=== PATIENT | female | born 1970 | race Caucasian/White ===

== ENCOUNTER 2019-11-12 10:01 | Day surgery (SDC) | payer BC ==
[~2019-11-12 10:01] MED LIST: Buffered Lidocaine 1% SYRIN* 1 ML/SYRINGE INTRADERM ONE; Dexamethasone IV* 4 MG/ML 1 ML (4 MG) IV SLOW PU ONE; Famotidine IV* 10 MG/ML 2 ML (20 mg) IV ONE; Lactated Ringers 1000 ML Bag* 1,000 ML IV SCH
[2019-11-12] MEDS ORDERED: Famotidine IV* 10 MG/ML 2 ML (20 mg) ONE (11:18)
[2019-11-12] MEDS ORDERED: Dexamethasone IV* 4 MG/ML 1 ML (4 MG) ONE (11:18)
[2019-11-12] MEDS ORDERED: Buffered Lidocaine 1% SYRIN* 1 ML/SYRINGE INTRADERM ONE (11:18)
[2019-11-12] MEDS ORDERED: Oxymetazoline 0.05% NASAL SPR* 15 ML BTL ONE ×2 (12:13→12:20)
[2019-11-12] MEDS ORDERED: Lidocaine 4% TOPICAL* 50 ML TOP.SOLN ONE (12:20)
[2019-11-12] MEDS ORDERED: Lidocaine 1% w EPI 1:100,000* MDV 20 ML VIAL ONE (12:20)
[2019-11-12] MEDS ORDERED: Lidocaine 2% PF * 5 ML VIAL ONE (12:30)
[2019-11-12] MEDS ORDERED: Propofol* 10 MG/ML 20 ML BTL ONE (12:30)
[2019-11-12] MEDS ORDERED: Midazolam* 1 MG/ML 5 ML VIAL (5 MG) ONE (12:30)
[2019-11-12] MEDS ORDERED: fentaNYL* 50 MCG/ML 2 ML VIAL (100 MCG VIAL) ONE (12:30)
[2019-11-12] MEDS ORDERED: Succinylcholine* 20 MG/ML 10 ML VIAL ONE (12:30)
[2019-11-12] MEDS ORDERED: Ondansetron INJ* 2 MG/ML VIAL ONE (13:11)
[2019-11-12] MEDS ORDERED: Acetaminophen ADULT LIQ* 650 MG/20.3 ML UDC ONE (14:35)
[2019-11-12 14:39] VITALS: BP 132/88
--- NOTE | 2019-11-12 21:13 | OP ---
OPERATIVE REPORT: DATE OF OPERATION: 11/12/19 - [facility] DATE OF : 68 SURGEON: Grzegorz Singer M.D. ARTISTIC ASSOCIATE: None. ANESTHESIOLOGIST: Vera Westbrook M.D. ANESTHESIA: General. PRE-OP DIAGNOSIS: Bilateral chronic maxillary sinusitis. POST-OP DIAGNOSIS: Bilateral chronic maxillary sinusitis. OPERATIVE PROCEDURE: Bilateral maxillary antrostomy with removal of tissue. ESTIMATED BLOOD LOSS: Negligible. SPECIMENS: Right and left sinus contents to Pathology. DESCRIPTION OF PROCEDURE: This is a 49-year-old woman, who has had problems with recurrent sinusitis. CT imaging demonstrated evidence of chronic mucosal sinus disease involving the maxillary sinuses and interestingly what appeared to be bilateral accessory ostia. The decision was made to bring the patient to the operating room for bilateral maxillary antrostomy to hopefully address any recirculation phenomena that might be driving the chronic sinusitis involving her maxillary sinuses. On 11/12/19, the patient was brought to the operating room. General anesthesia was induced and an oral endotracheal tube was placed. The patient was draped and a time-out was performed. The nasal cavities were packed with pledgets, saturated in Afrin and 4% lidocaine. Once adequate time had been allotted for vasoconstriction, 1% lidocaine with 1:100,000 epinephrine was infiltrated into the roots of both middle turbinates, the bodies of both middle turbinates as well as lateral nasal spence. After additional time for vasoconstriction, the procedure was begun, a Swivel knife was used to incise the uncinate processes vertically. The left side was addressed first. Once the uncinate was incised, it was removed. This facilitated exposure of the natural ostium as well as the more posteriorly inferiorly located accessory ostium. These ostia were then connected utilizing a variety of true-cutting instruments. There was mucopurulent material in the left maxillary sinus. Attention was then turned to the contralateral side and the procedure was repeated in an identical fashion. Again, the uncinate was removed. The natural ostium was identified as was the accessory ostium and these two were connected with a amish antrostomy. Once both antrostomies were complete, the middle turbinates were bolgerized. Stammberger SINU-FOAM gel was then placed into the middle meatus to prevent lateral adhesion of the middle turbinates. The patient was then returned to the care of the anesthesiologist, extubated, and delivered to the PACU. [id number] #: [id number]
== END 2019-11-12 15:29 | disposition home or self-care (01) ==
LOC: OR 10:01
PROVIDERS: ATTEND Otolaryngology
PROC: 099Q8ZZ Drainage of Right Maxillary Sinus, Via Natural or Artificial Opening Endoscopic (ICD-10-PCS; 2019-11-12)
PROC: 099R8ZZ Drainage of Left Maxillary Sinus, Via Natural or Artificial Opening Endoscopic (ICD-10-PCS; principal; 2019-11-12 12:00)
DX: J32.0 Chronic maxillary sinusitis (principal); R09.81 Nasal congestion; R09.82 Postnasal drip; Z87.891 Personal history of nicotine dependence
CPT/HCPCS: 88305; A9270-GY; J0330; J1100; J2250; J2405; J2704; J3010